=== PATIENT | female | born 1950 ===

== ENCOUNTER 2020-12-24 05:58 | Inpatient (IN) | payer OTHER ==
[~2020-12-24] VITALS: Ht 91.4 cm; Wt 5.0 kg
[~2020-12-24 05:58] MED LIST: ATORVASTATIN CA10 MG PO; JANUMET 50-1,01 EACH PO; LOSARTAN-HCTZ1 EAC1 PO
== END 2020-12-25 14:55 | disposition home or self-care (01) | DRG 348 ==
LOC: CIR.AMB 05:58 → O/R 12:51 → SURH 12:51 → CIR.AMB 20:15 → SURH 12-25 14:55 → EDSTATUS 12-26 11:45
PROVIDERS: ADMIT Surgery; ATTEND Surgery
PROC: 0DBP7ZZ Excision of Rectum, Via Natural or Artificial Opening (ICD-10-PCS; principal; 2020-12-24 20:15)
DX: D12.8 Benign neoplasm of rectum (principal); C20 Malignant neoplasm of rectum